=== PATIENT | female | born 1935 | race Caucasian/White ===

== ENCOUNTER 2018-12-03 14:45 | Emergency (ER) | payer OTHER, BC ==
[2018-12-03 15:14] VITALS: PULSE 95; TEMP 98.1; BMI 27.1
[2018-12-03] MEDS ORDERED: amLODIPine BESYLATE 5 MG TABLET (FP) PO ONE (16:48)
--- NOTE | 2018-12-03 16:48 | PDOC ---
History of Present Illness - General Chief Complaint: Blood Pressure Problem Stated Complaint: HTN Time Seen by Provider: 12/03/18 15:07 - History of Present Illness Initial Comments: 12/03/18 17:24 Healthy-appearing 83-year-old female with mild hypertension, saw her doctor today for routine visit, noted to have an elevated blood pressure and sent to the emergency room for further evaluation. Blood pressure in the office was in the 190/100 range, but the patient says that she is frequently anxious when she goes to the doctor and her blood pressure is usually elevated at doctor visits. She has also been under stress lately and has been eating out frequently, consuming more salt than usual. 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 On losartan. No prior [place], TIA, CVA, PVD Social history: No tobacco alcohol or nonprescription drugs. Fully active. Exercises. Meditates. Family history: No early coronary artery disease, stroke, diabetes, cancer Physical exam: Alert and oriented well-developed well-nourished no acute distress cheerful and cooperative Afebrile, vital signs normal except for systolic hypertension 193/79. Fundi benign with sharp disc margins good central venous pulsations no hemorrhages or exudates ENT clear Neck supple without bruit mass or nodes Lungs clear, full breath sounds bilaterally, no wheezes rales or rhonchi CV S1-S2 normal without murmur rub or gallop pulses full and symmetric no JVD or edema no bruits precordium is not hyperdynamic. Abdomen soft nontender without mass or organomegaly Neurological C2 to 12 intact. Strength full and symmetric. No focal sensory or motor deficits. Gait stable and unimpaired. Extremities no CCE Skin clear, no rash, adequate turgor and wet mucous membranes Impression: Isolated systolic hypertension, possibly the result of a combination of increased stress, increased salt intake, and anxiety which manifests itself at Dr./hospital visits. No sign of acute cardiac or neurological event Plan: Monitor, consider additional medication, close follow-up with blood pressure monitoring. [employer] referral by primary MD. Past History - Past Medical History Allergies/Adverse Reactions: Allergies Allergy/AdvReac Type Severity Reaction Status Date / Time milk Allergy Verified 12/03/18 15:01 Penicillins Allergy Verified 12/03/18 15:01 Home Medications: Ambulatory Orders Alpha Lipoic Acid 200 mg PO TID #90 capsule 12/03/18 Amlodipine Besylate [Norvasc -] 5 mg PO DAILY #30 tablet 12/03/18 Losartan Potassium 100 mg PO DAILY #30 tablet 12/03/18 COPD: No HTN: Yes Other medical history: PERIPHERAL NEUROPATHY - Psycho Social/Smoking Cessation Hx Smoking History: Never smoked Hx Alcohol Use: No Drug/Substance Use Hx: No *Physical Exam - Vital Signs Last Vital Signs Temp Pulse Resp BP Pulse Ox 98.1 F 95 H 16 199/104 H 98 12/03/18 15:00 12/03/18 15:00 12/03/18 15:00 12/03/18 15:00 12/03/18 15:00 Medical Decision Making - Medical Decision Making 12/03/18 17:29 Patient monitored, blood pressure remains in the 190/80 range. Remains asymptomatic with a normal physical, including neurological exam Additional medication was begun. Patient given amlodipine 5 mg to continue daily along with losartan, with close follow-up of her blood pressure, and instructions to return to the ER if she becomes symptomatic in any way. Fully ambulatory and in no distress upon discharge to follow-up as directed Discharge - Discharge Information Problems reviewed: Yes Clinical Impression/Diagnosis: Systolic hypertension Condition: Stable Disposition: HOME - Admission No - Additional Discharge Information Prescriptions: Alpha Lipoic Acid 200 mg PO TID #90 capsule Amlodipine Besylate [Norvasc -] 5 mg PO DAILY #30 tablet Losartan Potassium 100 mg PO DAILY #30 tablet - Follow up/Referral - Patient Discharge Instructions Patient Printed Discharge Instructions: DI for High Blood Pressure Additional Instructions: Take blood pressure medicine as directed. Have blood pressure rechecked by primary physician in 2 to 3 days. Adjustments of medication may be necessary. Return to ER if any symptoms develop, especially chest pain, shortness of breath , abdominal pain, nausea, sweating, lightheadedness/dizziness, numbness tingling pain or weakness in the extremities. - Post Discharge Activity
[2018-12-03 16:51] VITALS: BP 193/79
[2018-12-03] MEDS ORDERED: amLODIPine BESYLATE 5 MG TABLET (FP) ONE (16:55)
== END 2018-12-03 17:02 | disposition home or self-care (01) ==
LOC: FER 14:45
DX: I10 Essential (primary) hypertension (principal); Z88.0 Allergy status to penicillin; Z91.011 Allergy to milk products; G62.9 Polyneuropathy, unspecified
CPT/HCPCS: 99281-25

== ENCOUNTER 2022-01-10 20:51 | Inpatient (IN) | payer OTHER, BC ==
[2022-01-10] MEDS ORDERED: DIPHTH,PERTUSS(ACELL),TET 0.5 ML DISP.SYRIN IM ONE (21:51)
[2022-01-10 23:52] LABS: HEMATOCRIT 42.1 % (32.4-45.2); MCH 32.7 pg (25.7-33.7); MCHC 33.3 g/dl (32.0-36.0); MEAN CELL VOLUME 98.1 fl (80-96); MEAN PLT VOLUME 8.3 fl (7.5-11.1); PLATELET COUNT 129 10^3/uL (134-434); RBC 4.29 M/mm3 (3.60-5.2); RDW 14.2 % (11.6-15.6); WHITE BLOOD COUNT 3.3 K/mm3 (4.0-10.0)
[2022-01-11 00:09] LABS: BLOOD UREA NITROGEN 16.5 mg/dL (7-18); CALCIUM 8.6 mg/dL (8.5-10.1)
[2022-01-11 00:10] LABS: ALBUMIN 2.8 g/dl (3.4-5.0)
[2022-01-11 00:12] LABS: CREATININE 1.1 mg/dL (0.55-1.3)
[2022-01-11 00:14] LABS: BILIRUBIN,TOTAL 0.4 mg/dL (0.2-1); TOT PROT 6.1 g/dl (6.4-8.2)
[2022-01-11] MEDS ORDERED: ACETAMINOPHEN 325 MG TABLET (FP) PO PRN (00:58)
[2022-01-11 01:07] LABS: ANISOCYTOSIS 2+; MACROCYTOSIS 0; OVALOCYTE 1+; TEAR DROP CELLS 1+
[2022-01-11] MEDS ORDERED: DIPHTH,PERTUSS(ACELL),TET 0.5 ML DISP.SYRIN IM ONE (01:09)
[2022-01-11 06:32] VITALS: BMI 20.8
[2022-01-11] MEDS: METOPROLOL TARTRATE 50 MG TABLET (FP) PO SCH ×2 (10:51→21:20)
[2022-01-11] MEDS: PANTOPRAZOLE 40 MG TABLET PO SCH (10:51)
[2022-01-11] MEDS ORDERED: FLU VACC QS2022-23(6MOS UP)/PF 60 MCG/0.5 ML SYRINGE IM ONE (12:00)
[2022-01-11 13:12] LABS: HEMATOCRIT 44.7 % (32.4-45.2); HEMOGLOBIN 14.8 GM/dL (10.7-15.3); MCH 32.6 pg (25.7-33.7); MCHC 33.1 g/dl (32.0-36.0); MEAN CELL VOLUME 98.3 fl (80-96); MEAN PLT VOLUME 9.2 fl (7.5-11.1); PLATELET COUNT 145 10^3/uL (134-434); RBC 4.55 M/mm3 (3.60-5.2); RDW 13.8 % (11.6-15.6); WHITE BLOOD COUNT 2.9 K/mm3 (4.0-10.0)
[2022-01-11 13:27] LABS: MAGNESIUM 1.9 mg/dL (1.8-2.4)
[2022-01-11 13:29] LABS: ALBUMIN 2.9 g/dl (3.4-5.0); BLOOD UREA NITROGEN 18.3 mg/dL (7-18)
[2022-01-11 13:30] LABS: CREATININE 1.1 mg/dL (0.55-1.3)
[2022-01-11 13:32] LABS: TOT PROT 5.9 g/dl (6.4-8.2)
[2022-01-11 13:34] LABS: BILIRUBIN,TOTAL 0.4 mg/dL (0.2-1)
[2022-01-11 14:02] LABS: ANISOCYTOSIS 0; HELMET CELLS 0; HOWELL-JOLLY BODIES 0; MACROCYTOSIS 0; OVALOCYTE 0; ROULEAU 0; SICKELED CELLS 0; TARGET CELLS 0; TEAR DROP CELLS 0; TOXIC GRANULATION 0
[2022-01-12 09:49] LABS: BASO % 0.8 % (0-2.0); HEMATOCRIT 43.3 % (32.4-45.2); HEMOGLOBIN 14.3 GM/dL (10.7-15.3); LYMPH % 34.9 % (8-40); MCH 32.4 pg (25.7-33.7); MCHC 33.1 g/dl (32.0-36.0); MEAN CELL VOLUME 97.9 fl (80-96); MEAN PLT VOLUME 9.2 fl (7.5-11.1); MONO % 17.9 % (3.8-10.2); NEUT % 42.4 % (42.8-82.8); PLATELET COUNT 137 10^3/uL (134-434); RBC 4.42 M/mm3 (3.60-5.2); WHITE BLOOD COUNT 2.7 K/mm3 (4.0-10.0)
[2022-01-12] MEDS ORDERED: PANTOPRAZOLE 40 MG TABLET PO ONE (09:57)
[2022-01-12] MEDS: METOPROLOL TARTRATE 50 MG TABLET (FP) PO SCH ×2 (09:59→21:11)
[2022-01-12] MEDS: PANTOPRAZOLE 40 MG TABLET PO SCH (09:59)
[2022-01-12] MEDS: ENOXAPARIN NA (PORCINE) 40 MG/0.4 ML DISP.SYRIN SQ SCH (09:59)
[2022-01-12 10:11] LABS: CALCIUM 8.5 mg/dL (8.5-10.1)
[2022-01-12 10:15] LABS: CREATININE 1.1 mg/dL (0.55-1.3)
[2022-01-12] MEDS ORDERED: ARTIFICIAL TEARS (POLYVINYL ALCOHOL) OPTH DROPS OU PRN (10:22)
[2022-01-13] MEDS: PANTOPRAZOLE 40 MG TABLET PO SCH (06:05)
[2022-01-13] MEDS: ENOXAPARIN NA (PORCINE) 40 MG/0.4 ML DISP.SYRIN SQ SCH (10:36)
[2022-01-13] MEDS: METOPROLOL TARTRATE 50 MG TABLET (FP) PO SCH ×2 (10:36→21:10)
[2022-01-13] MEDS: amLODIPine BESYLATE 5 MG TABLET (FP) PO SCH (15:20)
[2022-01-13] MEDS: LOSARTAN POTASSIUM 25 MG TABLET PO SCH (15:20)
[2022-01-13] MEDS: levETIRAcetam 500 MG TABLET (FP) PO SCH (21:10)
[2022-01-14] MEDS: PANTOPRAZOLE 40 MG TABLET PO SCH (06:32)
[2022-01-14] MEDS ORDERED: hydrALAZINE HCL 10 MG TABLET PO ONE (06:51)
[2022-01-14] MEDS: METOPROLOL TARTRATE 50 MG TABLET (FP) PO SCH ×2 (10:07→22:02)
[2022-01-14] MEDS: levETIRAcetam 500 MG TABLET (FP) PO SCH ×2 (10:07→22:02)
[2022-01-14] MEDS: amLODIPine BESYLATE 5 MG TABLET (FP) PO SCH (10:07)
[2022-01-14] MEDS: LOSARTAN POTASSIUM 25 MG TABLET PO SCH (10:07)
[2022-01-14] MEDS: ENOXAPARIN NA (PORCINE) 40 MG/0.4 ML DISP.SYRIN SQ SCH (10:07)
[2022-01-14 10:15] LABS: BASO % 0.4 % (0-2.0); EOS % 3.7 % (0-4.5); HEMATOCRIT 45.4 % (32.4-45.2); HEMOGLOBIN 15.1 GM/dL (10.7-15.3); LYMPH % 39.7 % (8-40); MCH 32.6 pg (25.7-33.7); MCHC 33.2 g/dl (32.0-36.0); MEAN PLT VOLUME 9.2 fl (7.5-11.1); MONO % 12.9 % (3.8-10.2); NEUT % 43.3 % (42.8-82.8); PLATELET COUNT 142 10^3/uL (134-434); RBC 4.64 M/mm3 (3.60-5.2); RDW 13.7 % (11.6-15.6); WHITE BLOOD COUNT 2.5 K/mm3 (4.0-10.0)
[2022-01-14 10:45] LABS: BLOOD UREA NITROGEN 20.6 mg/dL (7-18); CALCIUM 8.6 mg/dL (8.5-10.1)
[2022-01-14 10:49] LABS: CREATININE 1.1 mg/dL (0.55-1.3)
[2022-01-15] MEDS: PANTOPRAZOLE 40 MG TABLET PO SCH (06:51)
[2022-01-15] MEDS: LOSARTAN POTASSIUM 25 MG TABLET PO SCH (09:20)
[2022-01-15] MEDS: levETIRAcetam 500 MG TABLET (FP) PO SCH ×2 (09:20→22:25)
[2022-01-15] MEDS: ENOXAPARIN NA (PORCINE) 40 MG/0.4 ML DISP.SYRIN SQ SCH (09:20)
[2022-01-15] MEDS: METOPROLOL TARTRATE 50 MG TABLET (FP) PO SCH ×2 (09:20→22:25)
[2022-01-15] MEDS: amLODIPine BESYLATE 5 MG TABLET (FP) PO SCH (09:20)
[2022-01-16] MEDS: PANTOPRAZOLE 40 MG TABLET PO SCH (06:21)
[2022-01-16] MEDS: LOSARTAN POTASSIUM 25 MG TABLET PO SCH (10:16)
[2022-01-16] MEDS: levETIRAcetam 500 MG TABLET (FP) PO SCH ×2 (10:16→22:05)
[2022-01-16] MEDS: amLODIPine BESYLATE 5 MG TABLET (FP) PO SCH (10:16)
[2022-01-16] MEDS: METOPROLOL TARTRATE 50 MG TABLET (FP) PO SCH ×2 (10:16→22:05)
[2022-01-16] MEDS: ENOXAPARIN NA (PORCINE) 40 MG/0.4 ML DISP.SYRIN SQ SCH (10:17)
[2022-01-16 12:25] LABS: ALBUMIN 2.5 g/dl (3.4-5.0)
[2022-01-16 12:28] LABS: BLOOD UREA NITROGEN 19.8 mg/dL (7-18); CALCIUM 8.1 mg/dL (8.5-10.1)
[2022-01-16 12:30] LABS: BASO % 0.7 % (0-2.0); EOS % 2.4 % (0-4.5); HEMATOCRIT 41.6 % (32.4-45.2); HEMOGLOBIN 13.8 GM/dL (10.7-15.3); MCH 32.3 pg (25.7-33.7); MCHC 33.2 g/dl (32.0-36.0); MEAN CELL VOLUME 97.5 fl (80-96); MEAN PLT VOLUME 9.5 fl (7.5-11.1); MONO % 15.9 % (3.8-10.2); PLATELET COUNT 126 10^3/uL (134-434); RBC 4.26 M/mm3 (3.60-5.2); RDW 13.7 % (11.6-15.6); WHITE BLOOD COUNT 2.4 K/mm3 (4.0-10.0)
[2022-01-16 12:33] LABS: BILIRUBIN,TOTAL 0.4 mg/dL (0.2-1); TOT PROT 5.2 g/dl (6.4-8.2)
[2022-01-17] MEDS: amLODIPine BESYLATE 5 MG TABLET (FP) PO SCH (10:07)
[2022-01-17] MEDS: PANTOPRAZOLE 40 MG TABLET PO SCH (10:07)
[2022-01-17] MEDS: LOSARTAN POTASSIUM 25 MG TABLET PO SCH (10:07)
[2022-01-17] MEDS: levETIRAcetam 500 MG TABLET (FP) PO SCH (10:07)
[2022-01-17] MEDS: METOPROLOL TARTRATE 50 MG TABLET (FP) PO SCH (10:07)
[2022-01-17] MEDS: ENOXAPARIN NA (PORCINE) 40 MG/0.4 ML DISP.SYRIN SQ SCH (10:07)
[2022-01-17 10:59] LABS: BASO % 0.5 % (0-2.0); EOS % 2.9 % (0-4.5); HEMATOCRIT 42.8 % (32.4-45.2); HEMOGLOBIN 14.2 GM/dL (10.7-15.3); LYMPH % 32.4 % (8-40); MCH 32.4 pg (25.7-33.7); MCHC 33.1 g/dl (32.0-36.0); MEAN CELL VOLUME 97.7 fl (80-96); MEAN PLT VOLUME 9.2 fl (7.5-11.1); MONO % 14.5 % (3.8-10.2); NEUT % 49.7 % (42.8-82.8); PLATELET COUNT 138 10^3/uL (134-434); RBC 4.38 M/mm3 (3.60-5.2); RDW 13.6 % (11.6-15.6); WHITE BLOOD COUNT 2.6 K/mm3 (4.0-10.0)
[2022-01-17 11:35] LABS: CREATININE 0.9 mg/dL (0.55-1.3)
[2022-01-17 14:52] VITALS: BP 124/71; PULSE 55; RESP 18; TEMP 97.8
== END 2022-01-17 18:47 | DRG 54 ==
LOC: JER 20:51 → INTOOBSV 22:35 → JERBED 22:35 → UNDOADMOB 22:35 → JERBED 01-11 00:53 → J8W 01-11 03:01 → OBSVTOIN 01-12 11:22
PROVIDERS: ADMIT Internal Medicine; ATTEND Internal Medicine
DX: C79.31 Secondary malignant neoplasm of brain (principal); U07.1 COVID-19; E46 Unspecified protein-calorie malnutrition; I12.9 Hypertensive chronic kidney disease with stage 1 through stage 4 chronic kidney disease, or unspecified chronic kidney disease; N18.9 Chronic kidney disease, unspecified; K21.9 Gastro-esophageal reflux disease without esophagitis; D70.9 Neutropenia, unspecified; C55 Malignant neoplasm of uterus, part unspecified; Z68.20 Body mass index [BMI] 20.0-20.9, adult
CPT/HCPCS: 0241U-QW; 36415; 70450-TC; 70553-TC; 71045-TC-FY; 73060-TC-RT-FY; 80048; 80053; 80061; 83735; 84100; 85025; 90715; 93005; 93010; 97116-GP; 97161-GP; 99285-25; A9579; C9803-CS; G0378; U0003; U0005